=== PATIENT | male | born 1985 ===

== ENCOUNTER → 2022-02-21 | Outpatient (CLI) | LOC: M SOG 14:25 | PROVIDERS: ATTEND Orthopaedic Surgery Hand Surgery | DX: M79.644 Pain in right finger(s) (principal); S63.22 Subluxation of unspecified interphalangeal joint of finger; X58.XXXA Exposure to other specified factors, initial encounter; Y92.9 Unspecified place or not applicable; Y93.9 Activity, unspecified; Y99.9 Unspecified external cause status ==